=== PATIENT | female | born 1980 | race Caucasian/White ===

== ENCOUNTER 2018-01-25 10:00 | Emergency (ER) | payer OTHER ==
--- NOTE | 2018-01-25 10:03 | PDOC ---
History of Present Illness - General Chief Complaint: Lightheaded Stated Complaint: NEAR SYNCOPY Time Seen by Provider: 01/25/18 10:03 - History of Present Illness Initial Comments: 01/25/18 11:34 Chief complaint: Near loss of consciousness History of present illness: The patient struck her elbow against the wall this morning, experiencing severe pain. Almost immediately she felt lightheaded, diaphoretic, with tingling of her face and hands, and nausea. She called her mother, who came immediately and lowered her to the floor. She did not fall and there was no complete loss of consciousness, although she did feel that she would intermittently black out. This has happened to her before in situations of stress. She has no known cardiac or neurological problems Review of systems: As noted above. In addition, there was no chest pain, shortness of breath, abdominal pain, vomiting or diarrhea, visual or focal neurologic symptoms, urinary tract symptoms. Her menses are regular, having just completed a normal period. Remainder systems reviewed and found to be negative Past medical history: Dyspepsia with recent upper endoscopy, which was negative. Otherwise no significant medical problems. No medications Social/family history: No tobacco alcohol or drugs. Fully active and without disability. Stable home and family. Father of coronary artery disease in his mid 60s. Mother had hypertension. No other cardiac or neurologic illnesses. Patient's cholesterol is normal Physical exam: Alert and oriented, well-developed well-nourished, no acute distress, cheerful and cooperative. Asymptomatic at present Afebrile, vital signs normal Head atraumatic. PERRLA 4 mm, fundi benign with sharp disc margins and good central venous pulsations. EOMs full without diplopia. Visual moffett intact. ENT clear Neck without tenderness or deformity, full range of motion without pain, no bruits masses or nodes Lungs clear to P&A with full breath sounds throughout bilaterally. No chest wall or rib cage tenderness or deformity CV S1 and S2 normal without murmur rub or gallop pulses full and symmetric no JVD or edema no bruits 70 and regular Abdomen soft nontender without mass or organomegaly Neurological C2 to 12 intact. Strength full and symmetric. No focal sensory or motor deficits. Cerebellar intact. Gait stable and unimpaired. Extremities no CCE Skin clear, no rash, adequate turgor and wet mucous membranes Impression: Vasovagal near syncope, similar symptoms in the past, mild autonomic instability. No evidence of cardiac or neurological disease. Asymptomatic at present. Plan: CBC and chemistries. Further medical management depending on results. Past History - Past Medical History Allergies/Adverse Reactions: Allergies Allergy/AdvReac Type Severity Reaction Status Date / Time paraben Allergy Intermediate Rash Verified 01/25/18 10:09 thimerosal Allergy Intermediate Rash Verified 01/25/18 10:08 *Physical Exam - Vital Signs Last Vital Signs Temp Pulse Resp BP Pulse Ox 96.8 F L 84 16 105/59 97 01/25/18 10:01 01/25/18 12:14 01/25/18 12:14 01/25/18 12:14 01/25/18 12:14 ED Treatment Course - LABORATORY CBC & Chemistry Diagram: 01/25/18 10:25 01/25/18 10:25 - ADDITIONAL ORDERS Additional order review: Laboratory Results 01/25/18 01/25/18 10:25 10:25 Sodium 132 L Potassium 4.0 Chloride 101 Carbon Dioxide 27 Anion Gap 4 L BUN 13 Creatinine < 0.8 Creat Clearance w eGFR > 60 Random Glucose 99 Calcium 8.8 Total Bilirubin 0.6 AST 18 ALT 14 Alkaline Phosphatase 45 Creatine Kinase 77 Troponin I < 0.03 Total Protein 6.8 Albumin 4.3 01/25/18 10:25 RBC 4.74 MCV 89.5 MCHC 33.7 RDW 12.6 MPV 10.8 Neutrophils % 68.5 Lymphocytes % 19.4 Monocytes % 7.5 Eosinophils % 4.1 Basophils % 0.5 - Medications Given in the ED: ED Medications Discontinued Medications Generic Name Dose Route Start Last Admin Trade Name Adeelq PRN Reason Stop Dose Admin Sodium Chloride 500 mls @ 500 mls/hr 01/25/18 10:37 01/25/18 10:41 Normal Saline - IV 01/25/18 11:36 500 mls/hr ASDIR STA Administration Medical Decision Making - Medical Decision Making 01/25/18 11:40 EKG shows normal sinus rhythm with mild sinus arrhythmia 77/m. Normal axis and intervals. No ST-T wave changes. Normal EKG. Chemistries including cardiac enzymes are normal CBC is normal. 01/25/18 12:29 Patient remains asymptomatic. Clinically and hemodynamically stable. Discharged with fully ambulatory and in no pain or other distress to follow-up as directed. *DC/Admit/Observation/Transfer Diagnosis at time of Disposition: Vaso vagal episode - Discharge Dispostion Disposition: HOME Condition at time of disposition: Stable Admit: No - Referrals - Patient Instructions Printed Discharge Instructions: DI for Syncope in Adults (Fainting) - Post Discharge Activity
[2018-01-25 10:22] VITALS: TEMP 96.8; BMI 19.8
[2018-01-25] MEDS ORDERED: SODIUM CHLORIDE 500 ML IV STA (10:37)
[2018-01-25 11:13] LABS: ALBUMIN 4.3 g/dl (3.5-5.0); ALK PHOS 45 U/L (32-92); ANION GAP 4 (8-16); BILIRUBIN,TOTAL 0.6 mg/dl (0.2-1.0); BLOOD UREA NITROGEN 13 mg/dl (7-18); CALCIUM 8.8 mg/dl (8.4-10.2); CHLORIDE 101 mmol/L (98-107); CO2 27 mmol/L (22-28); GLUCOSE,RANDOM 99 mg/dl (74-106); SGOT/AST 18 U/L (10-42); SGPT/ALT 14 U/L (10-40); SODIUM 132 mmol/L (136-145); TOT PROT 6.8 g/dl (6.4-8.3)
[2018-01-25 11:16] LABS: HEMOGLOBIN 14.3 GM/dl (10.7-15.3); MONO % 7.5 % (3.8-10.2)
[2018-01-25 11:45] LABS: CREATININE < 0.8 mg/dl (0.6-1.3)
[2018-01-25 11:48] LABS: BASO % 0.5 % (0-2.0); EOS % 4.1 % (0-4.5); HEMATOCRIT 42.4 % (32.4-45.2); LYMPH % 19.4 % (8-40); MCH 30.1 pg (25.7-33.7); MCHC 33.7 g/dl (32.0-36.0); MEAN CELL VOLUME 89.5 fl (80-96); MEAN PLT VOLUME 10.8 fl (7.5-11.1); NEUT % 68.5 % (42.8-82.8); PLATELET COUNT 203 K/MM3 (134-434); RBC 4.74 M/mm3 (3.60-5.2); RDW 12.6 % (11.6-15.6); WHITE BLOOD COUNT 5.9 K/mm3 (4.0-10.8)
[2018-01-25 12:15] VITALS: BP 105/59; PULSE 84
--- NOTE | 2018-01-26 08:25 | EKG ---
Test Reason : Blood Pressure : / mmHG Vent. Rate : 077 BPM Atrial Rate : 077 BPM P-R Int : 160 ms QRS Dur : 074 ms QT Int : 366 ms P-R-T Axes : 070 083 076 degrees QTc Int : 414 ms NORMAL SINUS RHYTHM WITH SINUS ARRHYTHMIA NORMAL ECG NO PREVIOUS ECGS AVAILABLE Confirmed by CYN MEMBRENO, OMA ([id number]) on 01/26/2018 8:24:26 AM Referred By: MARIBEL GIBBONS Confirmed By:OMA ADDISON MD
== END 2018-01-25 12:25 | disposition home or self-care (01) ==
LOC: FER 10:00
PROC: 3E0337Z Introduction of Electrolytic and Water Balance Substance into Peripheral Vein, Percutaneous Approach (ICD-10-PCS; principal; 2018-01-25)
DX: R55 Syncope and collapse (principal)
CPT/HCPCS: 36415; 80053; 82550; 84484; 85025; 93005; 99282-25